=== PATIENT | male | born 1955 | race Caucasian/White ===

== ENCOUNTER → 2023-01-30 | Outpatient (CLI) | payer MEDICARE ==
[2023-01-30 17:26] LABS: HEMATOCRIT 47.3 % (42.0-52.0); HEMOGLOBIN 15.3 g/dL (13.5-18.0); MEAN PLATELET VOLUME 9.6 fl (7.4-10.4); RED BLOOD COUNT 5.11 M/mm3 (4.20-5.60); RED CELL DISTRIBUTION WIDTH 13.6 % (11.5-14.5); WHITE BLOOD COUNT 9.5 K/mm3 (4.8-10.8)
[2023-01-30 17:32] LABS: ALBUMIN 4.3 g/dL (3.4-4.8)
[2023-01-30 17:33] LABS: CALCIUM 10.2 mg/dL (8.3-10.5)
[2023-01-30 17:34] LABS: TOTAL PROTEIN 7.4 g/dL (6.2-8.1)
[2023-01-30 17:53] LABS: TOTAL BILIRUBIN 0.6 mg/dL (0.2-1.2)
[2023-01-31 16:58] LABS: FOLATE (FOLIC ACID) 12.2 ng/mL (2.0-20.0)
[2023-02-05 17:08] LABS: A/G RATIO (PEP) 1.6 (0.7-1.7); BETA GLOBULINS (PEP) 1.2 g/dL (0.7-1.3)
[2023-02-06 10:35] LABS: PROTEIN TOTAL FOR PEP 6.9
== END ==
LOC: LAB 16:37 → RAD 16:37
PROVIDERS: Family Medicine
DX: M62.838 Other muscle spasm (principal); M62.81 Muscle weakness (generalized); G62.9 Polyneuropathy, unspecified; M50.30 Other cervical disc degeneration, unspecified cervical region